=== PATIENT | male | born 1990 | race African-American/Black ===

== ENCOUNTER 2019-02-18 16:38 | Emergency (ER) | payer SELFPAY ==
[~2019-02-18] VITALS: Ht 172.7 cm; Wt 70.0 kg
[2019-02-18] MEDS: LORAZEPAM 0.5MG TABLET PO ONE ×2 (18:00→18:13)
[2019-02-18 18:20] VITALS: BP 131/85
== END 2019-02-18 18:20 | disposition home or self-care (01) ==
LOC: ER 17:12
DX: F10.180 Alcohol abuse with alcohol-induced anxiety disorder (principal); Y90.9 Presence of alcohol in blood, level not specified; F41.9 Anxiety disorder, unspecified
CPT/HCPCS: 99283